=== PATIENT | male | born 1955 | race Caucasian/White ===

== ENCOUNTER 2020-04-08 10:43 | Outpatient (CLI) | payer BC, SELFPAY ==
[2020-04-10 22:44] LABS: SARS-CoV-2 RNA Undetected (Undetected); SARS-CoV-2 Specimen Source Nasopharynx
== END 2020-04-08 11:03 ==
PROVIDERS: PCP Family Medicine; Visit Provider Family Medicine
DX: Z03.818 Encounter for observation for suspected exposure to other biological agents ruled out (principal)
CPT/HCPCS: U0003

== ENCOUNTER 2021-08-08 01:30 | Outpatient (CLI) | payer BC, SELFPAY ==
[2021-08-08 10:41] LABS: Source Nasal/Nares
[2021-08-08 13:32] LABS: COVID-19 PCR Negative (Negative)
== END 2021-08-08 01:31 | disposition home or self-care (01) ==
LOC: LBO 01:31
PROVIDERS: PCP Family Medicine; Visit Provider Surgery
DX: Z20.822 Contact with and (suspected) exposure to COVID-19 (principal)
CPT/HCPCS: 87635

== ENCOUNTER 2021-08-11 08:12 | Day surgery (SDC) | payer BC, SELFPAY ==
--- NOTE | 2021-08-10 08:55 | ANES.PREOP_ITS ---
General Info Date of Service Date Performed: 08/11/21 Height: 6 ft Weight: 87.543 kg Body Mass Index (BMI): 26.2 Surgical Procedure: Operation Date: 08/11/21 09:05 Proposed Procedures Side Surgeon p Colonoscopy Fauzia Brasher MD Meds Allergies and Home Medications Allergies Allergy/AdvReac Type Severity Reaction Status Date / Time No Known Allergies Allergy Unverified 08/11/21 08:36 Home Medication Medication Instructions Recorded bisacodyl 5 mg tablet,delayed 5 mg PO ONCE #4 tab 07/31/21 release polyethylene glycol 3350 17 17 g PO ONCE #238 g 07/31/21 gram/dose oral powder magnesium citrate 08/11/21 Current Visit Medications: Current Medications Generic Name Dose Route Start Last Admin Trade Name Freq PRN Reason Stop Dose Admin Ringer's Solution 1,000 mls @ 80 mls/hr 08/11/21 06:00 IV 09/07/21 23:59 INFUSION BLANK IV Miscellaneous Supplies 1 each 08/11/21 06:00 Iv Access IV 09/07/21 23:59 DIRECTED BLANK Sodium Chloride 0 ml 08/11/21 06:00 Normal Saline Flush 10 Ml Syr IV 09/07/21 23:59 PRN PRN Sodium Chloride 0 ml 08/11/21 06:00 Normal Saline 10 Ml Vial IJ 09/07/21 23:59 DIRECTED PRN Sterile Water 0 ml 08/11/21 06:00 Water,Injection,Sterile 10 Ml Vial IJ 09/07/21 23:59 DIRECTED PRN PFSH Active Problems Active Problems: Problem Status Onset Code Screening for colon cancer Z12.11 Medical History Medical History (Updated 08/11/21 @ 08:39 by Brenda Bower) History and physical examination, occupation pt. reports annual physical exam, lipids monitored Surgical History Surgical History Colonoscopy - MAC (02/08/18) Hx of tonsillectomy Tobacco Smoking/Tobacco Use Status: Never Alcohol Alcohol Intake: current Alcohol intake frequency: 0-2 drinks per day Alcohol type: beer, wine and hard liquor Substance Use Substance use: Never Substance use type: does not use Vital Signs and Lab Results Lab Results Blood Type / Crossmatch: No Data to Display Complete Blood Count: No Data to Display Complete Metabolic Panel: 2 No Data to Display Liver Function Panel: No Data to Display Coagulation Panel: No Data to Display Cardiac Panel: No Data to Display Arterial Blood Gas: No Data to Display Venous Blood Gas: No Data to Display Pancreas Panel: No Data to Display Thyroid Panel: No Data to Display Infectious Disease: Coronavirus (COVID-19)(PCR) Negative (Negative) 08/08/21 09:03 08/08/21 Coronavirus 2019 Source Nasal/Nares 08/08/21 09:03 08/08/21 Blood Cultures: No Data to Display Toxicology Panel: No Data to Display Anesthesia Assessment and Plan Anesthesia History Personal History: No History of Anesthesia Complications Family History: No Family History of Anesthesia Complications Exercise Tolerance Exercise Tolerance: Metabolic Equivalents<4 Cardiac & Pulmonary Exam Cardiac Exam: Normal S1/S2 Heart Sounds Pulmonary Exam: Clear Bilateral Breath Sounds Airway Exam Known Difficult Airway: No Mallampati Class: 2 Mouth Opening: Normal (> 3cm) Thyromental Distance: Greater than 3 cm Neck Range of Motion: Full ROM Neck Circumference: Normal Teeth Condition: Normal Dentition ASA Classification ASA Score: ASA 2 Emergency Case?: No NPO Status NPO Status: NPO Clears >2 hours, Solids >8 hours Anesthesia Plan Resuscitation Status: Full Code Anesthesia Technique: General Anesthesia Airway Planned: Natural Airway Monitors Used: Standard Monitors Preoperative Comments:: 65 yo male with history of polyps for colonoscopy. Sig PMHx: never smoker, occ EtOH,
--- NOTE | 2021-08-11 06:41 | W.COLOREPORT ---
Colonoscopy Report Date of procedure: 08/11/21 Pre-op diagnosis general: Hx of polyps Post-op diagnosis procedure note: same (polyps and mild diverticulosis) Procedure: Colonoscopy with polypectomy Surgeon: Fauzia Brasher Anesthesia Type: General:No Airway (Neptali Arroyo, LITA) Estimated blood loss (mL): 2 Pathology: other (Ascending polyps x3, transverse polyp) Complications: None Disposition: same day Indications: The patient is here for Colonoscopy pre-op. His last screening was in 2018, which was remarkable for sessile serrated and tubulovillious polyps.He has no family history of colon cancer. He has not had any bowel habit changes. -Discussed colonoscopy bowel prep as well as the procedure. Discussed possible complications of the procedure to include bleeding, pain, perforation, missed small lesion/polyp, sore throat, aspiration and adverse reaction to the medications. Questions were answered to patient?s satisfaction. No guarantees were implied or given. Prep: Miralax/Dulcolax Procedure Start Time: 09:05 Procedure End Time: 09:48 Retraction Time: 28 minutes Findings: 4 small <5 mm polyps mild sigmoid diverticulosis Procedure Description: After informed consent was obtained the patient was taken to the procedure room and placed in a left decubitous position. Monitors were applied and a time out was done. The patients name, date of , procedure, allergies to medications and metal in their body was reviewed. The patient was then sedated. Once sedated and comfortable a rectal exam was done. External exam was normal. Internal exam revealed a normal sphincter tone and no palpable masses. The prostate felt smooth. The scope was then introduced and retro-flexed. No internal hemorrhoids, polyps or masses were identified on retro-flexion. The scope was then advanced to the cecum without difficulty. The ileocecal vlave and appendiceal orifice were identified. The prep was good. The scope was then slowly retracted over 28 minutes back into the rectum. Polyps were removed with cold forceps in the ascending colon x3 and transverse colon x1. There was mild sigmoid diverticulosis noted. The scope was removed and the patient was woken up and taken back to Same day surgery in stable condition. The patient tolerated the procedure well and there were no immediate complications. Follow up: The patient should follow up in 5 years unless they develop changes in bowel habits or other new gastrointestinal complaints.
--- NOTE | 2021-08-11 06:42 | W.PM.DSUDISC ---
Discharge Plan Disposition Patient Disposition: HOME Condition: Good Discharge Details Reason For Visit: Colonoscopy Attending Provider: Fauzia Brasher Primary Care Provider: Mane Moseley Home Meds and New Rx's Prescriptions: Continued magnesium citrate Solution RF: 0 Discontinued bisacodyl [Dulcolax (bisacodyl)] 5 mg tablet,delayed release (DR/EC) 5 mg PO ONCE Qty: 4 RF: 0 polyethylene glycol 3350 17 gram/dose powder 17 g PO ONCE Qty: 238 RF: 0 Discharge Instructions Instructions: Diverticulosis (DC) Additional Instructions: Findings: 4 small polyps mild diverticulosis Follow up: 3-5 years Please call if you develop: fevers >101.5 Nausea or Vomiting Abdominal pain that is not transient Rectal bleeding that is more then a tbsp A hard abdomen and inability to pass gas DAY SURGERY UNIT POST ENDOSCOPY INSTRUCTIONS Instructions for everyone who is given Anesthesia: For your safety, please do the following for the next 24 Hours: a. Do not drive or operate dangerous equipment b. Do not drink alcohol beverages or use any recreational drugs for the first 24 hours or while taking pain medications. The medications in your body may have a reaction that can be dangerous. c. Do not make any important decisions or sign any important papers 1. Generally there are no restrictions on your activity after a day or so has gone by, but you may feel a bit fatigued for a few days. 2. After you arrive home you may have a light meal and return to a normal diet as you can tolerate it without feeling sick to your stomach. 3. After surgery, you may feel pain or discomfort. This should be only transient, but if it persists please contact your doctor. 4. If there are any questions regarding the findings of your procedure, please feel free to contact your doctor. 6. If you are unable to contact your doctor with a problem, contact the hospital at [phone]. 7. Continue all your regular medications unless directed otherwise. I understand the above instructions and have no questions. Signature of Patient or Responsible Adult Escort Date/Time Name of Responsible Adult Escort Signature of Nurse Date/Time Activity:: Activity as Tolerated Diet:: high fiber diet Discharge Orders Discharge Orders: Discharge Order (Routine); Ordered 08/11/21 Ordered By: Fauzia Brasher
[2021-08-11 08:40] VITALS: BP 124/86; PULSE 61; RESP 16; TEMP 36.4; O2SAT 98
[2021-08-11 08:53] VITALS: BMI 26.2
[2021-08-11] MEDS: Lactated Ringers 1,000 ML 80 ML IV (08:56)
--- NOTE | 2021-08-11 09:21 | BOWEL_PTH ---
PATIENT: Mane Ceballos LOC: [facility] U#:[id number] AGE/SX: 65/M ROOM: RE08/11/[address]: Fauzia Brasher MD : [id number] BED: DIS: 08/11/2021 SPEC #: [id number] RECD: 08/11/21 12:36 STATUS: FAVIAN RELuis Miguel #: [id number] JOHNNIE: 08/11/21 09:[address]: Fauzia Brasher DEPT: Surgical Specimen RECD BY: Jaylene York ENTERED: 08/11/21 12:38 SP TYPE: Bowel OTHR DR: Mane Moseley Tissues: 1 - BIOPSY BOWEL 2 - BIOPSY BOWEL Procedures: GROSS AND MICRO LEVEL 4 Comments: [id number]
[2021-08-11 09:59] VITALS: BP 125/78; PULSE 64; RESP 18; TEMP 36.1; O2SAT 94
--- NOTE | 2021-08-11 10:00 | W.ANESPOSTOP ---
Postoperative Evaluation Date, Time and Location Date Performed: 08/11/21 Time Performed: 10:00 Patient Location: Day Surgery Unit Vital Signs Most Recent Imported Vital Signs: Most Recent Vital Signs Temp Pulse Resp BP Pulse Ox 36.4 C L 61 16 124/86 98 08/11/21 08:40 08/11/21 08:40 08/11/21 08:40 08/11/21 08:40 08/11/21 08:40 Most Recent Manually Entered Vital Signs: Adult Blood Pressure: 125/78 Heart Rate: 63 Respirations: 12 Oxygen Saturation (%): 95 Temperature (C): 36.3 C Pain Score (0-10 Scale): 0 Pain Score Most Recent Pain Score: Most Recent Pain Score Pain Level 0 08/11/21 08:40 Assessment Mental Status: Awake (Alert & Oriented to Patient Baseline) Airway and Respiratory Function: Patent airway with normal (patient baseline) respiratory exam Cardiovascular Function: Hemodynamically Stable Hydration Status: Adequately Hydrated Nausea & Vomiting: No Nausea or Vomiting Pain: Pt. Denies Any Pain Peripheral Nerve Block: Patient did not receive a nerve block
[2021-08-11 10:01] VITALS: BP 125/78; PULSE 63; RESP 12; TEMPC 36.3; O2SAT 95
[2021-08-11 10:21] VITALS: BP 133/79; PULSE 61; RESP 18; TEMP 36.3; O2SAT 98
== END 2021-08-11 11:00 | disposition home or self-care (01) ==
LOC: SUR 08:13
PROVIDERS: PCP Family Medicine; Visit Provider Surgery
PROC: 0DJD8ZZ Inspection of Lower Intestinal Tract, Via Natural or Artificial Opening Endoscopic (ICD-10-PCS; CPT 45378; principal; 2021-08-11 09:00)
DX: Z12.11 Encounter for screening for malignant neoplasm of colon (principal); D12.2 Benign neoplasm of ascending colon; K57.30 Diverticulosis of large intestine without perforation or abscess without bleeding; Z86.010 Personal history of colon polyps
CPT/HCPCS: 45380; 88305; J2001

== ENCOUNTER 2024-03-10 12:50 | Emergency (ER) | payer MEDICARE, BC, SELFPAY ==
[2024-03-10 12:53] VITALS: BP 133/82; PULSE 67; RESP 16; TEMP 37.1; O2SAT 95
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
--- NOTE | 2024-03-10 13:45 | DI.CT_ITS ---
Exam(s) CT CHEST/ABD/PEL W EXAM: CT CHEST/ABD/PEL W CLINICAL HISTORY: fall in garage, L lower rib / LUQ ABD. TECHNIQUE: Imaging Protocol: Axial computed tomography images with coronal and sagittal reformatted images were created and reviewed CONTRAST MATERIAL: Intravenous: Omnipaque 350 Contrast volume:100 ml Oral: yes / no COMPARISON: No exams were available for comparison FINDINGS: CHEST: Tracheobronchial tree: Patent. Pulmonary parenchyma: No consolidation or dominant measurable mass. Pleura: No effusion or pneumothorax. Lymph nodes: Within normal limits. Aorta: Thoracic portion non-dilated. Heart: No pericardial effusion. Mild coronary artery calcifications. Bones: Unremarkable for age. No lytic or blastic lesions.No compression fractures. No rib fractures are identified. Soft tissues: Unremarkable. ABDOMEN and PELVIS: Liver: Normal density. No suspicious mass. Gallbladder and biliary tract: No evidence of stones or wall thickening. No biliary dilatation. Pancreas: Normal density, no abnormal calcifications or inflammatory process. Spleen: Normal. Kidneys: Normal size, contour and axis. No radiodense stones. No obstructive uropathy. No suspicious masses seen. Adrenal glands: No masses seen. Aorta: Abdominal portion non-dilated. Moderate atherosclerotic changes. Lymph nodes: Within normal limits. Soft tissues: Unremarkable. Bladder: Mild wall thickening. Bowel: No obstruction or bowel wall thickening. Peritoneal cavity: No ascites. No focal collection. No mesenteric inflammatory response. Bones: Unremarkable for age. No spine or pelvic fracture. Reproductive organs: Prostate enlarged. IMPRESSION: No acute abnormality in the chest, abdomen or pelvis.. RADIATION DOSE DELIVERED: 1,125.37mGy.cm Total DLP DATA REPOSITORY: All CT scans at this facility are submitted to the National Radiology Data Registry (NRDR) Dose Index Registry (DIR) with the [employer] (ACR). RADIATION OPTIMIZATION: All CT scans at this facility use at least one of these dose optimization te chniques: automated exposure control; mA and/or kV adjustment per patient size (includes targeted exa ms where dose is matched to clinical indication); or iterative reconstruction.
[2024-03-10 14:15] LABS: Abs Immature Grans 0.04 10^3/uL (0.0-0.06); Absolute Basophil Count 0.03 10^3/uL (0.0-0.2); Absolute Eosinophil Count 0.06 10^3/uL (0.0-0.7); Absolute Lymphocyte Count 1.13 10^3/uL (1.2-3.4); Absolute Monocyte Count 0.38 10^3/uL (0.1-0.8); Absolute Neutrophil Count 4.29 10^3/uL (1.2-6.7); Basophils % 0.5 %; HCT 42.3 % (40.0-50.0); HGB 14.3 g/dL (13.5-17.5); Immature Grans % 0.7 %; Lymphocytes % 19.1 %; MCH 30.7 pg (27.0-33.0); MCHC 33.8 % (32.0-36.0); MCV 91 fL (80-95); MPV 9.5 fL (8.0-11.0); Monocytes % 6.4 %; Neutrophils % 72.3 %; Platelet Count 141 10^3/uL (130-400); RBC 4.66 10^6/uL (4.36-5.78); RDW 12.7 % (11.8-14.1); RDW-SD 41.7 fL; WBC 5.93 10^3/uL (4.4-10.8)
[2024-03-10 14:30] LABS: ALT 32 U/L (16-63); AST 16 U/L (15-37); Albumin 3.8 g/dL (3.4-5.0); Alkaline Phosphatase 70 U/L (46-116); Anion Gap 8.9 mmol/L (3-11); BUN 20 mg/dL (7-18); Bilirubin, Total 0.8 mg/dL (0.2-1.0); CO2 27.1 mmol/L (21.0-32.0); Calcium 8.7 mg/dL (8.5-10.1); Chloride 104 mmol/L (98-107); Estimated GFR 82.49 (mL/min/1.73m2); Glucose 103 mg/dL (74-106); Lipase 29 U/L (16-77); Potassium 3.9 mmol/L (3.5-5.1); Sodium 140 mmol/L (136-145); Total Protein 6.9 g/dL (6.4-8.2)
[2024-03-10] MEDS: Omnipaque 350 MG/ML 500 ML BTL-Imaging package 100 ML IJ (15:28)
[2024-03-10] MEDS: Normal Saline - Diluent 50 ML VIAL IJ (15:29)
[2024-03-10 15:40] LABS: Bilirubin Negative (Negative); Blood Negative (Negative); Clarity Clear (Clear); Glucose Negative (Negative); Ketones Negative (Negative); Leukocyte Esterase Negative (Negative); Nitrite Negative (Negative); Specific Gravity 1.015 (1.005-1.025); Urobilinogen 0.2 mg/dL (Up to 0.2); pH 6.5 (5-8)
[2024-03-10 16:20] VITALS: BP 139/95; PULSE 59; RESP 16; O2SAT 100
== END 2024-03-10 16:15 | disposition home or self-care (01) ==
PROVIDERS: Physician Assistant; Emergency Provider Physician Assistant; PCP Family Medicine
DX: R07.81 Pleurodynia (principal); R10.12 Left upper quadrant pain
CPT/HCPCS: 74177; 80053; 83690; 99285; 71260; 81003; 85025; 99284

== ENCOUNTER 2024-10-09 13:31 | Outpatient (CLI) | payer MEDICARE, BC, SELFPAY ==
[2024-10-09 11:12] LABS: ESR 8 mm/hr (0-20)
[2024-10-09 11:52] LABS: C-Reactive Protein 0.54 mg/dL (<or=0.5)
[2024-10-10 18:08] LABS: Angiotensin Converting Enzyme 39 U/L (16 - 85)
[2024-10-12 10:34] LABS: Myeloperoxidase Ab IgG <0.2 U (>=0.4); Proteinase 3 Ab (PR3) <0.2 U
== END 2024-10-09 13:32 | disposition home or self-care (01) ==
LOC: LBO 13:31
PROVIDERS: PCP Nurse Practitioner Family; Visit Provider Otolaryngology
DX: H65.23 Chronic serous otitis media, bilateral (principal); J32.9 Chronic sinusitis, unspecified
CPT/HCPCS: 36415; 82164; 85652; 83516; 86140

== ENCOUNTER 2024-10-09 17:44 | Outpatient (REF) | payer MEDICARE, BC, SELFPAY | END 2024-10-09 17:45 | disposition home or self-care (01) | LOC: LBN 17:44 | PROVIDERS: PCP Nurse Practitioner Family; Referring Provider Nurse Practitioner Family; Visit Provider Otolaryngology | DX: J32.9 Chronic sinusitis, unspecified (principal); H65.23 Chronic serous otitis media, bilateral | CPT/HCPCS: 87077; 87070; 87186 ==

== ENCOUNTER → 2025-06-05 12:51 | Outpatient (BNVA) | payer MEDICARE, BC, SELFPAY | PROVIDERS: PCP Nurse Practitioner Family; Referring Provider Nurse Practitioner Family; Visit Provider Student in an Organized Health Care Education/Training Program | DX: M65.312 Trigger thumb, left thumb (principal) | CPT/HCPCS: 99213 ==

== ENCOUNTER 2025-09-21 12:17 | Outpatient (CLI) | payer MEDICARE, BC, SELFPAY ==
[2025-09-21 14:20] LABS: Hemoglobin A1C 5.3 % (<5.7)
[2025-09-21 15:07] LABS: ALT 62 U/L (10-49); AST 19 U/L (<34); Albumin 3.8 g/dL (3.2-5.0); Alkaline Phosphatase 132 U/L (46-116); Anion Gap 9.8 mmol/L (3-11); BUN 19 mg/dL (9-23); Bilirubin, Total 0.7 mg/dL (0.2-1.2); CO2 24.2 mmol/L (20.0-31.0); Calcium 8.7 mg/dL (8.3-10.6); Chloride 110 mmol/L (98-107); Cholesterol 133 mg/dL (<200); Glucose 94 mg/dL (74-106); HDL Cholesterol 41 mg/dL (>40); Potassium 4.1 mmol/L (3.5-5.1); Sodium 144 mmol/L (136-145); Total Protein 6.7 g/dL (5.7-8.2)
[2025-09-22 04:04] LABS: PSA, Screening 1.7 ng/mL (<=4.5)
== END 2025-09-21 12:18 | disposition home or self-care (01) ==
LOC: LBO 12:18
PROVIDERS: PCP Nurse Practitioner Family; Visit Provider Nurse Practitioner Family
DX: R73.01 Impaired fasting glucose (principal); Z00.00 Encounter for general adult medical examination without abnormal findings; E78.5 Hyperlipidemia, unspecified; Z12.5 Encounter for screening for malignant neoplasm of prostate
CPT/HCPCS: 36415; 80053; 80061; 84153; 83036